=== PATIENT | female | born 1975 | race Asian ===

== ENCOUNTER 2021-05-28 14:08 | Emergency (ER) | payer BC ==
[~2021-05-28] VITALS: Ht 157.5 cm; Wt 80.0 kg
--- NOTE | 2021-05-28 14:18 | NUR ---
pt BIB ambulance after witnessed syncopal episode today while moving boxes. +LOC, no injury. per report pt was hypotensive on scene at 70/40 but improved to 100/60 after 400cc NS bolus. upon admit pt is A&O x4. no c/o at this time. pt is having frequent PVC's on the monitor and EKG at bedside shows bigeminy. no family at bedside. report to [facility]
[2021-05-28] MEDS ORDERED: SODIUM CHLORIDE 0.9% 1,000ML IVBOLUS ONE (15:30)
--- NOTE | 2021-05-28 15:50 | NUR ---
up to restroom-almost syncopized. hr to 130. able to compensate and walked to restroom for c.c. ua-sent to lab Lab at bedside for draw 1L ns administered per emar Patient updated on estimated poc
[2021-05-28 16:07] LABS: ALBUMIN 3.7 g/dL (3.4-5.0); ANION GAP 9 mmol/L (5-15); CHLORIDE 103 mmol/L (98-107); CREATININE 0.87 mg/dL (0.55-1.02)
[2021-05-28 16:18] LABS: BASOPHILS % (AUTO) 1 % (0-1); EOSINOPHILS % (AUTO) 1 % (1-7); LYMPHOCYTES % (AUTO) 19 % (22-44); MEAN CORPUSCULAR HEMOGLOBIN 30.8 pg (27.0-34.8); MEAN CORPUSCULAR HGB CONC 32.9 g/dL (32.4-35.8); MEAN PLATELET VOLUME 7.3 fL (7.4-10.4); MONOCYTES % (AUTO) 5 % (2-9); NEUTROPHILS % (AUTO) 75 % (42-75); PLATELET COUNT 346 x10^3/uL (130-400); RED CELL DISTRIBUTION WIDTH 13.2 % (9.6-15.2)
--- NOTE | 2021-05-28 16:25 | NUR ---
road test unremarkable (no dizziness) after 1l ns
[2021-05-28 16:37] LABS: MICROSCOPIC INDICATED
[2021-05-28 17:27] VITALS: BP 139/77
== END 2021-05-28 17:28 | disposition home or self-care (01) ==
LOC: ED 14:38
DX: R55 Syncope and collapse (principal); E11.9 Type 2 diabetes mellitus without complications
CPT/HCPCS: 36415; 80048; 81001; 82040; 85025; 87077; 87086; 93005; 96360; 99284; J7030